=== PATIENT | male | born 1930 | race Caucasian/White ===

== ENCOUNTER 2020-01-29 16:52 | Emergency (ER) | payer MEDICARE ==
--- NOTE | 2020-01-29 17:33 | EDM.PDOC ---
ED HPI GENERAL MEDICAL PROBLEM - General Chief Complaint: Genitourinary Problem Stated Complaint: CATHETER Time Seen by Provider: 01/29/20 17:28 Source of Information: Reports: Patient History Limitations: Reports: No Limitations - History of Present Illness INITIAL COMMENTS - FREE TEXT/NARRATIVE: 89-year-old gentleman presents to the emergency room stating that he has blocked up and his difficulty urinating. Duration: Hour(s): Location: Reports: Pelvis Quality: Reports: Pressure Severity: Mild Improves with: Reports: None Worsens with: Reports: None Associated Symptoms: Reports: No Other Symptoms lower abdomen Pain Score (Numeric/FACES): 3 - Related Data Allergies Allergy/AdvReac Type Severity Reaction Status Date / Time No Known Allergies Allergy Verified 01/29/20 17:18 Past Medical History HEENT History: Reports: Impaired Vision Cardiovascular History: Reports: None Respiratory History: Reports: None Gastrointestinal History: Reports: None Genitourinary History: Reports: BPH, Other (See Below) Other Genitourinary History: catheter at home. Musculoskeletal History: Reports: None Neurological History: Reports: None Psychiatric History: Reports: None Endocrine/Metabolic History: Reports: None Hematologic History: Reports: None Immunologic History: Reports: None Oncologic (Cancer) History: Reports: None Dermatologic History: Reports: None - Infectious Disease History Infectious Disease History: Reports: None - Past Surgical History Head Surgeries/Procedures: Reports: None HEENT Surgical History: Reports: None Cardiovascular Surgical History: Reports: None Respiratory Surgical History: Reports: None GI Surgical History: Reports: None Male Surgical History: Reports: None Endocrine Surgical History: Reports: None Neurological Surgical History: Reports: None Musculoskeletal Surgical History: Reports: None Oncologic Surgical History: Reports: None Dermatological Surgical History: Reports: None Social & Family History - Family History Family Medical History: Noncontributory - Tobacco Use Smoking Status *Q: Never Smoker Second Hand Smoke Exposure: No - Caffeine Use Caffeine Use: Reports: Coffee - Recreational Drug Use Recreational Drug Use: No ED ROS GENERAL - Review of Systems Review Of Systems: See Below Constitutional: Reports: No Symptoms HEENT: Reports: No Symptoms Respiratory: Reports: No Symptoms Cardiovascular: Reports: No Symptoms Endocrine: Reports: No Symptoms GI/Abdominal: Reports: No Symptoms : Reports: Urgency, Urinary Retention Musculoskeletal: Reports: No Symptoms Skin: Reports: No Symptoms Neurological: Reports: No Symptoms Psychiatric: Reports: No Symptoms Hematologic/Lymphatic: Reports: No Symptoms Immunologic: Reports: No Symptoms ED EXAM, RENAL/ - Physical Exam Exam: See Below Exam Limited By: No Limitations General Appearance: Alert, WD/WN, No Apparent Distress Ears: Normal External Exam Nose: Normal Inspection, Normal Mucosa Throat/Mouth: Normal Inspection, Normal Lips Head: Atraumatic, Normocephalic Neck: Normal Inspection, Supple Respiratory/Chest: No Respiratory Distress, Lungs Clear, Normal Breath Sounds, No Accessory Muscle Use Cardiovascular: Normal Peripheral Pulses GI/Abdominal: Normal Bowel Sounds, Soft, Non-Tender (Male) Exam: No Hernia, Normal Inspection, Other (Catheter draining very well being after flushed clean) Back Exam: Normal Inspection, Full Range of Motion Course - Vital Signs Last Recorded V/S: Last Vital Signs Temp 96.8 F L 01/29/20 17:19 Pulse 137 H 01/29/20 17:19 Resp 18 01/29/20 17:19 BP 163/97 H 01/29/20 17:19 Pulse Ox 96 01/29/20 17:19 - Orders/Labs/Meds Orders: Active Orders 24 hr Category Date Time Status Bladder Scan [RC] ASDIRECTED Care 01/29/20 17:43 Active CBC WITH AUTO DIFF [HEME] Stat Lab 01/29/20 18:51 Ordered COMPREHENSIVE METABOLIC PN,CMP [CHEM] Stat Lab 01/29/20 18:51 Ordered Departure - Departure Time of Disposition: 19:35 Disposition: Home, Self-Care 01 Condition: Good Clinical Impression: Retention of urine - Discharge Information Instructions: Acute Urinary Retention, Male, [id number] Referrals: Vincent Winter MD [Primary Care Provider] - Forms: ED Department Discharge Additional Instructions: #1. Follow-up with your primary care physician II. Return for fever chills or any new signs of obstruction. Sepsis Event Note - Evaluation Sepsis Screening Result: No Definite Risk - Focused Exam Vital Signs: Vital Signs Temp Pulse Resp BP Pulse Ox 01/29/20 17:19 96.8 F L 137 H 18 163/97 H 96 Date Exam was Performed: 01/29/20 Time Exam was Performed: 19:33 - My Orders Last 24 Hours: My Active Orders 01/29/20 18:51 CBC WITH AUTO DIFF [HEME] Stat COMPREHENSIVE METABOLIC PN,CMP [CHEM] Stat - Assessment/Plan Last 24 Hours: My Active Orders 01/29/20 18:51 CBC WITH AUTO DIFF [HEME] Stat COMPREHENSIVE METABOLIC PN,CMP [CHEM] Stat
== END 2020-01-29 20:02 | disposition home or self-care (01) ==
LOC: MW.ED 16:52
DX: N40.1 Benign prostatic hyperplasia with lower urinary tract symptoms (principal); R33.8 Other retention of urine
CPT/HCPCS: 51798; 99282; 99283

== ENCOUNTER 2020-02-29 08:39 | Emergency (ER) | payer MEDICARE ==
--- NOTE | 2020-02-29 09:08 | EDM.PDOC ---
ED HPI GENERAL MEDICAL PROBLEM - General Chief Complaint: Genitourinary Problem Stated Complaint: CATHETER COMPLAINT Time Seen by Provider: 02/29/20 08:56 Source of Information: Reports: Patient History Limitations: Reports: No Limitations - History of Present Illness INITIAL COMMENTS - FREE TEXT/NARRATIVE: 89 yo M with indwelling justice catheter presents with clogged indwelling catheter for 1 to 2 days. He has noted no urine output into the bag and associated with suprapubic pain. Denies fever, chills, flank pain. ROS: A 10-point review of systems, other than pertinent positives and negatives as stated per HPI, is otherwise negative PHYSICAL EXAM General: AOx4, GCS = 15, No distress HEENT: dry mucous membrane Neck: supple, no meningismus, no Kernig or Brudzinski Cardiac: S1S2 RRR Respiratory: CTAB, no crackles or rales, no wheezing Abdomen: Soft, nontender, no rebound or guarding, nondistended, no pulsatile mass. : Justice catheter in place. Back: nontender Musculoskeletal: NVI distally, no deformity Neuro: No focal deficits MEDICAL DECISION MAKING: I reviewed the patients past medical records, lab and radiographic findings. I discussed the case with family members. My differential diagnosis included: Justice obstruction, spasm. Justice was changed with good urine output. Pelvic Pain Score (Numeric/FACES): 7 - Related Data Allergies Allergy/AdvReac Type Severity Reaction Status Date / Time No Known Allergies Allergy Verified 02/29/20 09:02 Home Meds: Home Meds cephALEXin [Keflex] 500 mg PO Q8H #21 cap 02/29/20 [Rx] Past Medical History HEENT History: Reports: Impaired Vision Cardiovascular History: Reports: None Respiratory History: Reports: None Gastrointestinal History: Reports: None Genitourinary History: Reports: BPH, Other (See Below) Other Genitourinary History: catheter at home. Musculoskeletal History: Reports: None Neurological History: Reports: None Psychiatric History: Reports: None Endocrine/Metabolic History: Reports: None Hematologic History: Reports: None Immunologic History: Reports: None Oncologic (Cancer) History: Reports: None Dermatologic History: Reports: None - Infectious Disease History Infectious Disease History: Reports: None - Past Surgical History Head Surgeries/Procedures: Reports: None HEENT Surgical History: Reports: None Cardiovascular Surgical History: Reports: None Respiratory Surgical History: Reports: None GI Surgical History: Reports: None Male Surgical History: Reports: None Endocrine Surgical History: Reports: None Neurological Surgical History: Reports: None Musculoskeletal Surgical History: Reports: None Oncologic Surgical History: Reports: None Dermatological Surgical History: Reports: None Social & Family History - Family History Family Medical History: Noncontributory - Caffeine Use Caffeine Use: Reports: Coffee ED ROS GENERAL - Review of Systems Review Of Systems: See Below (see dictation) ED EXAM, RENAL/ - Physical Exam Exam: See Below (see dictation) Course - Vital Signs Last Recorded V/S: Last Vital Signs Temp 97.9 F 02/29/20 09:02 Pulse 84 02/29/20 10:21 Resp 16 02/29/20 10:21 BP 144/77 H 02/29/20 10:21 Pulse Ox 95 02/29/20 10:21 - Orders/Labs/Meds Orders: Active Orders 24 hr Category Date Time Status CULTURE URINE [RM] Stat Lab 02/29/20 09:15 Received Labs: Laboratory Tests 02/29/20 Range/Units 09:15 Urine Color YELLOW Urine Appearance CLOUDY Urine pH 7.5 (5.0-8.0) Ur Specific [place] 1.020 (1.001-1.035) Urine Protein TRACE H (NEGATIVE) mg/dL Urine Glucose (UA) NEGATIVE (NEGATIVE) mg/dL Urine Ketones NEGATIVE (NEGATIVE) mg/dL Urine Occult Blood MODERATE H (NEGATIVE) Urine Nitrite POSITIVE H (NEGATIVE) Urine Bilirubin NEGATIVE (NEGATIVE) Urine Urobilinogen 0.2 (<2.0) EU/dL Ur Leukocyte Esterase LARGE H (NEGATIVE) Urine RBC 5-8 (0-2/HPF) Urine WBC 40-50 (0-5/HPF) Ur Epithelial Cells FEW (NONE-FEW) Urine Bacteria 3+ H (NEGATIVE) - Re-Assessments/Exams Free Text/Narrative Re-Assessment/Exam: 02/29/20 10:22 After Justice change, his symptoms improved and he is stable for discharge. I performed a repeat examination and the patient has not demonstrated any new abnormal findings. Patient exhibits normal vital signs and has exhibited a normal gait. I advised the patient to return to the ER for reevaluation if symptoms worsened, and to follow up with their PCP within 2-3 days. Departure - Departure Time of Disposition: 10:22 Disposition: Home, Self-Care 01 Condition: Good Clinical Impression: UTI, Urinary tract infectious disease, Retention of urine, Justice catheter problem - Discharge Information *PRESCRIPTION DRUG MONITORING PROGRAM REVIEWED*: Not Applicable *COPY OF PRESCRIPTION DRUG MONITORING REPORT IN PATIENT MIRY[place]: Not Applicable Prescriptions: cephALEXin [Keflex] 500 mg PO Q8H #21 cap Instructions: Indwelling Urinary Catheter Care, Adult, Urinary Tract Infection , Adult, Indwelling Urinary Catheter Insertion, Care After Referrals: Vincent Winter MD [Primary Care Provider] - Forms: ED Department Discharge Additional Instructions: The following information is given to patients seen in the emergency department who are being discharged to home. This information is to outline your options for follow-up care. We provide all patients seen in our emergency department with a follow-up referral. The need for follow-up, as well as the timing and circumstances, are variable depending upon the specifics of your emergency department visit. If you don't have a primary care physician on staff, we will provide you with a referral. We always advise you to contact your personal physician following an emergency department visit to inform them of the circumstance of the visit and for follow-up with them and/or the need for any referrals to a consulting specialist. The emergency department will also refer you to a specialist when appropriate. This referral assures that you have the opportunity for follow-up care with a specialist. All of these measure are taken in an effort to provide you with optimal care, which includes your follow-up. Under all circumstances we always encourage you to contact your private physician who remains a resource for coordinating your care. When calling for follow-up care, please make the office aware that this follow-up is from your recent emergency room visit. If for any reason you are refused follow-up, please contact the [facility] Department at and asked to speak to the emergency department charge nurse. Sepsis Event Note - Focused Exam Vital Signs: Vital Signs Temp Pulse Resp BP Pulse Ox 02/29/20 10:21 84 16 144/77 H 95 02/29/20 09:02 97.9 F 104 H 18 191/96 H 98 Date Exam was Performed: 02/29/20 Time Exam was Performed: 10:22 - My Orders Last 24 Hours: My Active Orders 02/29/20 09:15 CULTURE URINE [RM] Stat - Assessment/Plan Last 24 Hours: My Active Orders 02/29/20 09:15 CULTURE URINE [RM] Stat
== END 2020-02-29 10:30 | disposition home or self-care (01) ==
LOC: MW.ED 08:39
DX: T83.511A Infection and inflammatory reaction due to indwelling urethral catheter, initial encounter (principal); N39.0 Urinary tract infection, site not specified; N40.1 Benign prostatic hyperplasia with lower urinary tract symptoms; R33.8 Other retention of urine
CPT/HCPCS: 51702; 81001; 87086; 87186; 99283

== ENCOUNTER 2020-05-15 12:47 | Emergency (ER) | payer MEDICARE ==
[2020-05-15 13:37] LABS: CARBON DIOXIDE,CO2 23.3 mmol/L (21.0-32.0); POTASSIUM,K 4.2 mmol/L (3.5-5.1)
[2020-05-15] MEDS ORDERED: Lactated Ringers 1,000 ML IV ONE (13:41)
[2020-05-15] MEDS ORDERED: Iopamidol 755 MG/ML 200 ML Multipack Bottle IVPUSH ONE (14:37)
--- NOTE | 2020-05-15 15:03 | CT ---
CT abdomen and pelvis Technique: Multiple axial sections were obtained from above the dome of the diaphragm inferiorly through the pubic symphysis. Intravenous contrast was utilized. No oral contrast has been given. Comparison: Prior CT abdomen and pelvis exam of 12/05/19. Visualized lung bases show slight scarring with nothing acute being seen. Liver contains no focal parenchymal abnormality. Small hiatal hernia is noted. Spleen appears normal. Gallstone is noted within the gallbladder which is stable from prior exam. Multiple cysts within the right kidney are seen which are stable from prior exam. Left kidney shows no cysts. No hydronephrosis is seen. No ureteral dilatation is seen. Atherosclerotic calcification is seen within the aorta and iliac vessels. Slight wall thickening is seen within portions of the stomach antrum and duodenum suggesting mild antritis and duodenitis. Pancreas appears within normal limits. Aorta shows atherosclerotic change which continues into the iliac vessels. No aneurysm is seen. No retroperitoneal adenopathy or mesenteric abnormalities are seen. Appendix is seen which is normal in size. Markedly enlarged prostate gland is seen. Lee catheter is noted with balloon located within the bladder. Bone window setting shows mild degenerative change and osteopenia. No acute abnormality is appreciated. Impression: 1. Bowel wall thickening within the stomach antrum and duodenum suspicious for antritis and duodenitis. 2. Other findings which are stable from prior CT exam. No other acute abnormality is appreciated. Diagnostic code #3 This report was dictated in MDT
--- NOTE | 2020-05-15 15:17 | EDM.PDOC ---
ED HPI GENERAL MEDICAL PROBLEM - General Chief Complaint: General Stated Complaint: DEHYDRATION Time Seen by Provider: 05/15/20 12:55 Source of Information: Reports: Patient, Family History Limitations: Reports: No Limitations - History of Present Illness INITIAL COMMENTS - FREE TEXT/NARRATIVE: 89-year-old male with a past medical history of BPH requiring Lee catheter placement presenting with diarrhea, vomiting, and poor feeding. Patient and report a one-week history of nonbloody diarrhea, which lasted for 5 to 6 days and stopped yesterday. They also report several days of nonbloody emesis and nausea. states that the patient has not been eating very much over the past week and is concerned that he may be dehydrated. The states that the patient was complaining of some upper epigastric and lower chest pain over the past few days. At present, the patient has no complaints. He denies any pain, nausea, GI bleeding, chest discomfort, abdominal pain, or any other complaints. Denies any recent sick contacts. Denies flank pain, back pain, neck pain, dysuria, hematuria, or bloody stools. Patient was recently treated with a course of Bactrim DS but I am not entirely certain what this was for. He was seen by his primary medical doctor yesterday for diarrhea but was unable to provide a stool sample for testing, and has not had any diarrhea since then. He has not been taking any antiemetic or antidiarrheal medications. ROS: A 10-point review of systems was negative, except as noted in the HPI (or in the ROS section of this note). Past medical history: Reviewed, no additional pertinent history. Surgical history: Reviewed in system, no additional pertinent history. Social history: Reviewed in system, no additional pertinent history. Family history: Reviewed in system, no additional pertinent history. PHYSICAL EXAM Vital signs reviewed. Nursing notes reviewed. Constitutional: Awake, alert, non-distressed. Head: Normocephalic, atraumatic. Eyes: EOMI, conjunctiva normal, no discharge, no scleral icterus. Ears, Nose, Throat: External ears and nose normal, moist oral mucosa. Cardiovascular: 2+ radial pulse, capillary refill less than 2 seconds. Pulmonary: normal work of breathing, no accessory muscle use. Abdomen/GI: Soft, nontender, nondistended, no guarding or rigidity, no masses. Musculoskeletal: No deformities. Integumentary: Appropriate color for ethnicity, warm, dry, no pallor or jaundice, no rash. Neurologic: Alert, answering questions appropriately, normal speech, no facial droop, moving all extremities well. Psychiatric: Appropriate mood and affect, normal thought process. - Related Data Allergies Allergy/AdvReac Type Severity Reaction Status Date / Time No Known Allergies Allergy Verified 05/15/20 13:02 Home Meds: Home Meds cephALEXin [Keflex] 500 mg PO Q8H #21 cap 02/29/20 [Rx] Ondansetron [Zofran] 4 mg PO Q8H PRN #15 tab 05/15/20 [Rx] Past Medical History HEENT History: Reports: Impaired Vision Cardiovascular History: Reports: None Respiratory History: Reports: None Gastrointestinal History: Reports: None Genitourinary History: Reports: BPH, Other (See Below) Other Genitourinary History: catheter at home. Musculoskeletal History: Reports: None Neurological History: Reports: None Psychiatric History: Reports: None Endocrine/Metabolic History: Reports: None Hematologic History: Reports: None Immunologic History: Reports: None Oncologic (Cancer) History: Reports: None Dermatologic History: Reports: None - Infectious Disease History Infectious Disease History: Reports: None - Past Surgical History Head Surgeries/Procedures: Reports: None HEENT Surgical History: Reports: None Cardiovascular Surgical History: Reports: None Respiratory Surgical History: Reports: None GI Surgical History: Reports: None Male Surgical History: Reports: None Endocrine Surgical History: Reports: None Neurological Surgical History: Reports: None Musculoskeletal Surgical History: Reports: None Oncologic Surgical History: Reports: None Dermatological Surgical History: Reports: None Social & Family History - Family History Family Medical History: Noncontributory - Tobacco Use Smoking Status *Q: Never Smoker - Caffeine Use Caffeine Use: Reports: Coffee - Recreational Drug Use Recreational Drug Use: No ED ROS GENERAL - Review of Systems Review Of Systems: See Below ED EXAM, GENERAL - Physical Exam Exam: See Below Course - Vital Signs Text/Narrative:: Differential diagnosis includes but is not limited to: Gastritis, gastroenteritis, bowel obstruction, hernia, AAA, intra-abdominal infection, ileus, cholecystitis, acute hepatitis, acute coronary syndrome, fine depletion, electrolyte disturbance, renal failure, etc. Labs show mild leukocytosis. Lactate within normal limits. Mild hyponatremia to 130. Mild acute renal insufficiency with creatinine of 1.5. Glucose 146 with normal carbon dioxide. Negative troponin. Negative lipase. We obtained a CT scan of the abdomen/pelvis with contrast which demonstrated bowel wall thickening within the stomach antrum and the duodenum suspicious for antritis and duodenitis, but otherwise no acute findings. Twelve-lead EKG looks nonischemic. Given 1 L of lactated Ringer's. Patient has no complaints and is asymptomatic at this point. He was given IV fluids. I think we can plan to discharge home and have him follow-up with his primary doctor. He can have his sodium and creatinine rechecked in the next couple of days. I will prescribe some Zofran for any nausea or vomiting. His diarrhea has subsided since yesterday and has not come back. I counseled the patient and his that they can give acetaminophen, Maalox max, and Imodium AD as needed. I do not see any indication for re-prescribing antibiotics given the patient recently finished a course of Bactrim DS. His abdomen is soft and nondistended and there is no abdominal pain or tenderness. He looks well and nontoxic. Plan: Patient is stable to discharge home with outpatient primary care follow- up. Strict emergency department return precautions were provided, patient indicated understanding. All questions were answered prior to departure. Discharged in good condition. Last Recorded V/S: Last Vital Signs Temp 36.3 C 05/15/20 13:02 Pulse 76 05/15/20 13:30 Resp 19 05/15/20 13:30 BP 151/79 H 05/15/20 13:30 Pulse Ox 95 05/15/20 13:30 - Orders/Labs/Meds Orders: Active Orders 24 hr Category Date Time Status EKG 12 Lead [EKG Documentation Completion] [RC] STAT Care 05/15/20 16:17 Active Labs: Laboratory Tests 05/15/20 05/15/20 05/15/20 Range/Units 13:04 13:04 13:04 WBC 15.07 H (4.0-11.0) K/uL RBC 5.36 (4.50-5.90) M/uL Hgb 16.2 (13.0-17.0) g/dL Hct 46.9 (38.0-50.0) % MCV 87.5 (80.0-98.0) fL MCH 30.2 (27.0-32.0) pg MCHC 34.5 (31.0-37.0) g/dL RDW Std Deviation 42.4 (28.0-62.0) fl RDW Coeff of Michael 13 (11.0-15.0) % Plt Count 259 (150-400) K/uL MPV 8.80 (7.40-12.00) fL Neut % (Auto) 77.8 (48.0-80.0) % Lymph % (Auto) 11.0 L (16.0-40.0) % Davie % (Auto) 10.9 (0.0-15.0) % Eos % (Auto) 0.2 (0.0-7.0) % Baso % (Auto) 0.1 (0.0-1.5) % Neut # (Auto) 11.7 H (1.4-5.7) K/uL Lymph # (Auto) 1.7 (0.6-2.4) K/uL Davie # (Auto) 1.7 H (0.0-0.8) K/uL Eos # (Auto) 0.0 (0.0-0.7) K/uL Baso # (Auto) 0.0 (0.0-0.1) K/uL Nucleated RBC % 0.0 /100WBC Nucleated RBCs # 0 K/uL Lactate 1.7 (0.20-2.00) mmol/L Sodium 130 L (136-148) mmol/L Potassium 4.2 (3.5-5.1) mmol/L Chloride 96 L (98-107) mmol/L Carbon Dioxide 23.3 (21.0-32.0) mmol/L BUN 34 H (7.0-18.0) mg/dL Creatinine 1.5 H (0.8-1.3) mg/dL Est Cr Clr Drug Dosing 34.70 mL/min Estimated GFR (MDRD) 44.3 ml/min Glucose 146 H (74-106) mg/dL Calcium 8.7 (8.5-10.1) mg/dL Total Bilirubin 0.7 (0.2-1.0) mg/dL AST 29 (15-37) IU/L ALT 33 (14-63) IU/L Alkaline Phosphatase 66 (46-116) U/L Troponin I (0.000-0.056) ng/mL Total Protein 8.0 (6.4-8.2) g/dL Albumin 3.6 (3.4-5.0) g/dL Globulin 4.4 H (2.6-4.0) g/dL Albumin/Globulin Ratio 0.8 L (0.9-1.6) Lipase (73-393) U/L 05/15/20 05/15/20 Range/Units 13:04 13:04 WBC (4.0-11.0) K/uL RBC (4.50-5.90) M/uL Hgb (13.0-17.0) g/dL Hct (38.0-50.0) % MCV (80.0-98.0) fL MCH (27.0-32.0) pg MCHC (31.0-37.0) g/dL RDW Std Deviation (28.0-62.0) fl RDW Coeff of Michael (11.0-15.0) % Plt Count (150-400) K/uL MPV (7.40-12.00) fL Neut % (Auto) (48.0-80.0) % Lymph % (Auto) (16.0-40.0) % Davie % (Auto) (0.0-15.0) % Eos % (Auto) (0.0-7.0) % Baso % (Auto) (0.0-1.5) % Neut # (Auto) (1.4-5.7) K/uL Lymph # (Auto) (0.6-2.4) K/uL Davie # (Auto) (0.0-0.8) K/uL Eos # (Auto) (0.0-0.7) K/uL Baso # (Auto) (0.0-0.1) K/uL Nucleated RBC % /100WBC Nucleated RBCs # K/uL Lactate (0.20-2.00) mmol/L Sodium (136-148) mmol/L Potassium (3.5-5.1) mmol/L Chloride (98-107) mmol/L Carbon Dioxide (21.0-32.0) mmol/L BUN (7.0-18.0) mg/dL Creatinine (0.8-1.3) mg/dL Est Cr Clr Drug Dosing mL/min Estimated GFR (MDRD) ml/min Glucose (74-106) mg/dL Calcium (8.5-10.1) mg/dL Total Bilirubin (0.2-1.0) mg/dL AST (15-37) IU/L ALT (14-63) IU/L Alkaline Phosphatase (46-116) U/L Troponin I < 0.050 (0.000-0.056) ng/mL Total Protein (6.4-8.2) g/dL Albumin (3.4-5.0) g/dL Globulin (2.6-4.0) g/dL Albumin/Globulin Ratio (0.9-1.6) Lipase 278 (73-393) U/L Meds: Medications Discontinued Medications Generic Name Dose Route Start Last Admin Trade Name Freq PRN Reason Stop Dose Admin Lactated Ringer's 1,000 mls @ 999 mls/hr 05/15/20 13:41 05/15/20 14:20 Ringers, Lactated IV 05/15/20 14:41 999 mls/hr .BOLUS ONE Administration Iopamidol 100 ml 05/15/20 14:37 05/15/20 14:37 Isovue Multipack-370 (76%) IVPUSH 05/15/20 14:38 100 ml ONETIME ONE Administration Departure - Departure Time of Disposition: 15:16 Disposition: Home, Self-Care 01 Condition: Good Clinical Impression: Gastritis and duodenitis, Hyponatremia, Acute diarrhea, Acute renal insufficiency Nausea & vomiting Qualifiers: Vomiting type: unspecified Vomiting Intractability: non-intractable Qualified Code(s): R11.2 - Nausea with vomiting, unspecified - Discharge Information *PRESCRIPTION DRUG MONITORING PROGRAM REVIEWED*: Not Applicable *COPY OF PRESCRIPTION DRUG MONITORING REPORT IN PATIENT MIRYAM: Not Applicable Instructions: Gastritis, Adult, Duodenitis, Nausea and Vomiting, Adult, [id number] Referrals: Vincent Winter MD [Primary Care Provider] - 3 Days (For follow-up of symptoms.) Forms: ED Department Discharge Additional Instructions: Thank you for choosing the [facility] emergency department in [place] for your medical needs today. It was a pleasure caring for you. You were seen in the emergency department for vomiting, diarrhea, and poor appetite. Your blood work showed mild dehydration. Your CT scan was concerning for some inflammation around the stomach and the small intestines. At this point I do not see a convincing sign of infection and you have recently finished oral antibiotics. I will prescribe some medicine for nausea and vomiting, I recommend [id number] Imodium for diarrhea if this comes back. I also recommend [id number] Maalox max for any abdominal pain. You are mildly dehydrated and we gave you some IV fluids. Your sodium level is slightly low and your renal function was slightly impaired, I would like for you to follow-up with your primary doctor to have this rechecked in the next week or so. I would like for you to follow-up with your doctor in the next couple of days to be reevaluated. Please return the emergency department immediately if your symptoms worsen or if you feel worse. The following information is given to patients seen in the emergency department who are being discharged. This information is to outline your options for follow-up care. We provide all patients seen in our emergency department with a follow-up referral. The need for follow-up, as well as the timing and circumstances, are variable depending upon the specifics of your emergency department visit. If you don't have a primary care physician on staff, we will provide you with a referral. We always advise you to contact your personal physician following an emergency department visit to inform them of the circumstance of the visit and for follow-up with them and/or the need for any referrals to a consulting specialist. The emergency department will also refer you to a specialist when appropriate. This referral assures that you have the opportunity for follow-up care with a specialist. All of these measure are taken in an effort to provide you with optimal care, which includes your follow-up. Under all circumstances we always encourage you to contact your private physician who remains a resource for coordinating your care. When calling for follow-up care, please make the office aware that this follow-up is from your recent emergency room visit. If for any reason you are refused follow-up, please contact the [facility] Emergency Department at and asked to speak to the emergency department charge nurse. If you do not have a primary care physician that is caring for you, you can contact these clinics below to set up an appointment to establish care: [facility] - Primary Care [address] [place] [id number] [facility] [address] [place] [id number] Sepsis Event Note (ED) - Evaluation Sepsis Screening Result: No Definite Risk - Focused Exam Vital Signs: Vital Signs Temp Pulse Resp BP Pulse Ox 05/15/20 13:30 76 19 151/79 H 95 05/15/20 13:02 36.3 C 83 16 164/72 H 97 - My Orders Last 24 Hours: My Active Orders 05/15/20 16:17 EKG 12 Lead [EKG Documentation Completion] [RC] STAT - Assessment/Plan Last 24 Hours: My Active Orders 05/15/20 16:17 EKG 12 Lead [EKG Documentation Completion] [RC] STAT
== END 2020-05-15 17:22 | disposition home or self-care (01) ==
LOC: MW.ED 12:47
DX: K29.70 Gastritis, unspecified, without bleeding (principal); K29.80 Duodenitis without bleeding; E87.1 Hypo-osmolality and hyponatremia; R19.7 Diarrhea, unspecified; N28.9 Disorder of kidney and ureter, unspecified
CPT/HCPCS: 36415; 74177; 80053; 83605; 83690; 84484; 85025; 93005; 96360; 96361; 99284; J7120; Q9967; 93010

== ENCOUNTER 2022-05-21 19:37 | Emergency (ER) | payer MEDICARE ==
[2022-05-21] MEDS ORDERED: Lactated Ringers 1,000 ML IV ONE (19:59)
[2022-05-21] MEDS ORDERED: Acetaminophen 500 MG Tab PO ONE (20:00)
[2022-05-21] MEDS ORDERED: Ondansetron 4 MG/2 ML SDV IVPUSH ONE (20:00)
[2022-05-21] MEDS ORDERED: Cefepime 2 GM in Premix Bag 1 BAG IV ONE (20:31)
[2022-05-21 20:44] LABS: CARBON DIOXIDE,CO2 17.3 mmol/L (21.0-32.0); POTASSIUM,K 4.4 mmol/L (3.5-5.1)
[2022-05-21] MEDS ORDERED: VANCOmycin 1.5 GM/300 ML 1.5 GM in Premix Bag 1 BAG IV ONE (20:45)
[2022-05-21] MEDS ORDERED: Lactated Ringers 1,000 ML IV STA (20:52)
[2022-05-21 20:59] LABS: CORONAVIRUS COVID-19 NAA NEGATIVE (NEGATIVE); INFLUENZA A NAA NEGATIVE (NEGATIVE); INFLUENZA B NAA NEGATIVE (NEGATIVE)
[2022-05-21] MEDS ORDERED: Iopamidol 755 MG/ML 500 ML Multipack Bottle IVPUSH ONE (22:10)
[2022-05-22] MEDS ORDERED: Lactated Ringers 1,000 ML IV STA (01:44)
[2022-05-22] MEDS ORDERED: Cefepime 2 GM in Premix Bag 1 BAG IV STA (05:10)
[2022-05-22] MEDS ORDERED: metroNIDAZOLE/Normal Saline 500 MG in Premix Bag 1 BAG IV ONE (05:10)
[2022-05-22 05:27] LABS: CARBON DIOXIDE,CO2 22.5 mmol/L (21.0-32.0); POTASSIUM,K 3.9 mmol/L (3.5-5.1)
[2022-05-22] MEDS ORDERED: Morphine 4 MG/ML VIAL IVPUSH ONE (06:10)
== END 2022-05-22 07:40 ==
LOC: MW.ED 19:37
DX: A41.9 Sepsis, unspecified organism (principal); R65.20 Severe sepsis without septic shock; K85.10 Biliary acute pancreatitis without necrosis or infection; N39.0 Urinary tract infection, site not specified; E87.2 Acidosis; Z20.822 Contact with and (suspected) exposure to COVID-19
CPT/HCPCS: 0240U; 36415; 71045; 74177; 80053; 81001; 83605; 83690; 85025; 85610; 87040; 87086; 87088; 87186; 93005; 96361; 96365; 96366; 96367; 96375; 99291; 99292; A9270; J0692; J2270; J2405; J3370; J3490; J7120; Q9967; 93010

== ENCOUNTER 2022-08-26 18:33 | Inpatient (IN) | payer MEDICARE, OTHER ==
[2022-08-26] MEDS ORDERED: Lidocaine 1% PF 2 ML SDV INJECT ONE (18:43)
[2022-08-26 19:11] LABS: CARBON DIOXIDE,CO2 21.2 mmol/L (21.0-32.0); POTASSIUM,K 3.7 mmol/L (3.5-5.1)
[2022-08-26] MEDS ORDERED: Morphine 4 MG/ML Syringe IVPUSH STA (19:18)
[2022-08-26] MEDS ORDERED: Lactated Ringers 1,000 ML IV STA (21:29)
[2022-08-26] MEDS ORDERED: Albuterol/Ipratropium 3.0-0.5 MG/3 ML Neb Soln NEB PRN (23:45)
[2022-08-26] MEDS ORDERED: Ondansetron 4 MG/2 ML SDV IVPUSH PRN (23:45)
[2022-08-27] MEDS: Lactated Ringers 1,000 ML IV SCH ×2 (00:30→21:36)
[2022-08-27] MEDS: Pantoprazole 40 MG in Sodium Chloride 0.9% 10 ML IVPUSH SCH ×2 (00:30→22:56)
[2022-08-27] MEDS: Heparin Sodium 5,000 Units/ML Vial SUBCUT SCH ×2 (00:31→08:26)
[2022-08-27] MEDS: Morphine 2 MG/ML SYRINGE IVPUSH PRN ×3 (00:31→20:20)
[2022-08-27 06:25] LABS: CARBON DIOXIDE,CO2 21.8 mmol/L (21.0-32.0); POTASSIUM,K 4.1 mmol/L (3.5-5.1)
[2022-08-27] MEDS ORDERED: Bupivacaine 0.5% 10 ML SDV ONE (10:39)
[2022-08-27] MEDS ORDERED: Dexmedetomidine 200 MCG/2 ML SDV ONE (10:43)
[2022-08-27] MEDS ORDERED: Water For Injection, Sterile 20 ML ONE (10:43)
[2022-08-27] MEDS ORDERED: propofoL 100 ML ONE (10:43)
[2022-08-27] MEDS ORDERED: fentaNYL 100 MCG/2 ML SDV ONE (11:31)
[2022-08-27] MEDS: Enoxaparin 30 MG/0.3 ML Syringe SUBCUT SCH (11:40)
[2022-08-27] MEDS ORDERED: Ondansetron 4 MG/2 ML SDV ONE (12:10)
[2022-08-27] MEDS ORDERED: ceFAZolin 2 GM Vial ONE (12:46)
[2022-08-27] MEDS ORDERED: Tranexamic Acid 1,000 MG/10 ML Vial ONE (12:50)
[2022-08-27] MEDS ORDERED: Phenylephrine 1% 10 MG/ML SDV ONE (12:58)
[2022-08-27] MEDS ORDERED: Vasopressin 20 Units/1 ML MDV ONE (13:03)
[2022-08-27] MEDS ORDERED: ePHEDrine 50 MG/ML SDV ONE (13:20)
[2022-08-27] MEDS ORDERED: Albuterol 0.083% 2.5 MG/3 ML Neb Soln NEB PRN (14:08)
[2022-08-27] MEDS ORDERED: Naloxone 0.4 MG/ML SDV IVPUSH PRN (14:08)
[2022-08-27] MEDS ORDERED: Ondansetron 4 MG/2 ML SDV IVPUSH PRN (14:08)
[2022-08-27] MEDS ORDERED: HYDROmorphone 1 MG/ML Syringe IVPUSH PRN (14:08)
[2022-08-27] MEDS ORDERED: Morphine 2 MG/ML SYRINGE IVPUSH PRN (14:08)
[2022-08-27] MEDS ORDERED: Metoclopramide 10 MG/2 ML SDV IVPUSH PRN (14:08)
[2022-08-27] MEDS ORDERED: fentaNYL 50 MCG/ML SDV IVPUSH PRN (14:08)
[2022-08-27] MEDS: ceFAZolin 2 GM in Sodium Chloride 0.9% 50 ML IV SCH (20:28)
[2022-08-27] MEDS: Acetaminophen/HYDROcodone 325-5 MG Tab PO PRN (22:51)
[2022-08-28] MEDS: Lactated Ringers 1,000 ML IV SCH ×3 (01:24→18:08)
[2022-08-28] MEDS: ceFAZolin 2 GM in Sodium Chloride 0.9% 50 ML IV SCH (03:32)
[2022-08-28] MEDS: Acetaminophen/HYDROcodone 325-5 MG Tab PO PRN ×4 (05:30→20:32)
[2022-08-28 06:21] LABS: CARBON DIOXIDE,CO2 26.6 mmol/L (21.0-32.0); POTASSIUM,K 4.2 mmol/L (3.5-5.1)
[2022-08-28] MEDS: Docusate Sodium 100 MG Cap PO SCH ×2 (09:56→20:32)
[2022-08-28] MEDS: amLODIPine 5 MG Tab PO SCH (09:56)
[2022-08-28] MEDS: Enoxaparin 30 MG/0.3 ML Syringe SUBCUT SCH (11:57)
[2022-08-28] MEDS: Morphine 2 MG/ML SYRINGE IVPUSH PRN ×2 (12:01→15:17)
[2022-08-28] MEDS: Pantoprazole 40 MG in Sodium Chloride 0.9% 10 ML IVPUSH SCH (23:35)
[2022-08-29] MEDS: Lactated Ringers 1,000 ML IV SCH (02:27)
[2022-08-29] MEDS: Morphine 2 MG/ML SYRINGE IVPUSH PRN ×2 (02:28→13:10)
[2022-08-29 06:51] LABS: CARBON DIOXIDE,CO2 27.1 mmol/L (21.0-32.0); POTASSIUM,K 3.7 mmol/L (3.5-5.1)
[2022-08-29] MEDS ORDERED: Sodium Chloride 0.9% 10 ML Syringe FLUSH PRN (08:04)
[2022-08-29] MEDS ORDERED: Sodium Chloride 0.9% 2.5 ML Syringe FLUSH PRN (08:04)
[2022-08-29] MEDS: Docusate Sodium 100 MG Cap PO SCH ×2 (09:02→20:10)
[2022-08-29] MEDS: amLODIPine 5 MG Tab PO SCH (09:03)
[2022-08-29] MEDS: Acetaminophen/HYDROcodone 325-5 MG Tab PO PRN ×2 (09:04→20:10)
[2022-08-29] MEDS ORDERED: Acetaminophen 325 MG Tab PO PRN (10:54)
[2022-08-29] MEDS: cefTRIAXone 1 GM in Sodium Chloride 0.9% 50 ML IV SCH (11:59)
[2022-08-29] MEDS: Enoxaparin 30 MG/0.3 ML Syringe SUBCUT SCH (12:10)
[2022-08-29] MEDS ORDERED: Lactated Ringers 500 ML IV ONE (14:00)
[2022-08-29] MEDS: Pantoprazole 40 MG Tab.CR PO SCH (20:10)
[2022-08-30 07:25] LABS: CARBON DIOXIDE,CO2 23.6 mmol/L (21.0-32.0); POTASSIUM,K 3.6 mmol/L (3.5-5.1)
[2022-08-30] MEDS: amLODIPine 5 MG Tab PO SCH (09:52)
[2022-08-30] MEDS: Docusate Sodium 100 MG Cap PO SCH ×2 (09:52→20:04)
[2022-08-30] MEDS: Acetaminophen/HYDROcodone 325-5 MG Tab PO PRN ×3 (10:28→21:26)
[2022-08-30] MEDS: cefTRIAXone 1 GM in Sodium Chloride 0.9% 50 ML IV SCH (10:57)
[2022-08-30] MEDS: Enoxaparin 30 MG/0.3 ML Syringe SUBCUT SCH (10:58)
[2022-08-30] MEDS: Morphine 2 MG/ML SYRINGE IVPUSH PRN ×2 (12:09→19:59)
[2022-08-30] MEDS: Pantoprazole 40 MG Tab.CR PO SCH (20:04)
[2022-08-31] MEDS ORDERED: Acetaminophen 325 MG Tab PO SCH (08:00)
[2022-08-31] MEDS: Polyethylene Glycol 3350 Powder 17 GM Packet PO SCH (10:09)
[2022-08-31] MEDS: Docusate Sodium 100 MG Cap PO SCH ×2 (10:09→20:01)
[2022-08-31] MEDS: amLODIPine 5 MG Tab PO SCH (10:09)
[2022-08-31] MEDS: Acetaminophen 325 MG Tab PO SCH ×3 (10:12→20:01)
[2022-08-31] MEDS: cefTRIAXone 1 GM in Sodium Chloride 0.9% 50 ML IV SCH (10:13)
[2022-08-31] MEDS: Enoxaparin 30 MG/0.3 ML Syringe SUBCUT SCH (10:30)
[2022-08-31 12:44] LABS: CARBON DIOXIDE,CO2 23.7 mmol/L (21.0-32.0); POTASSIUM,K 3.6 mmol/L (3.5-5.1)
[2022-08-31] MEDS: Bisacodyl 10 MG Supp RECTAL PRN (14:29)
[2022-08-31] MEDS: Pantoprazole 40 MG Tab.CR PO SCH (20:01)
[2022-09-01] MEDS: Acetaminophen 325 MG Tab PO SCH ×4 (03:34→20:49)
[2022-09-01 06:59] LABS: POTASSIUM,K 3.7 mmol/L (3.5-5.1)
[2022-09-01] MEDS: Docusate Sodium 100 MG Cap PO SCH ×2 (08:31→20:48)
[2022-09-01] MEDS: amLODIPine 5 MG Tab PO SCH (08:32)
[2022-09-01] MEDS: Polyethylene Glycol 3350 Powder 17 GM Packet PO SCH (08:33)
[2022-09-01] MEDS: Enoxaparin 30 MG/0.3 ML Syringe SUBCUT SCH (10:45)
[2022-09-01] MEDS: cefTRIAXone 1 GM in Sodium Chloride 0.9% 50 ML IV SCH (10:45)
[2022-09-01] MEDS: Levofloxacin/Dextrose 5%-Water 750 MG in Premix Bag 1 BAG IV SCH (15:29)
[2022-09-01] MEDS: Pantoprazole 40 MG Tab.CR PO SCH (20:49)
[2022-09-02] MEDS: Acetaminophen 325 MG Tab PO SCH ×4 (03:56→21:06)
[2022-09-02 07:42] LABS: CARBON DIOXIDE,CO2 23.4 mmol/L (21.0-32.0); POTASSIUM,K 3.6 mmol/L (3.5-5.1)
[2022-09-02] MEDS: Polyethylene Glycol 3350 Powder 17 GM Packet PO SCH (08:41)
[2022-09-02] MEDS: Docusate Sodium 100 MG Cap PO SCH ×2 (08:41→21:06)
[2022-09-02] MEDS: amLODIPine 5 MG Tab PO SCH (08:41)
[2022-09-02] MEDS: Enoxaparin 30 MG/0.3 ML Syringe SUBCUT SCH (11:15)
[2022-09-02] MEDS: Levofloxacin/Dextrose 5%-Water 750 MG in Premix Bag 1 BAG IV SCH (14:49)
[2022-09-02] MEDS: Pantoprazole 40 MG Tab.CR PO SCH (21:06)
[2022-09-03] MEDS: Acetaminophen 325 MG Tab PO SCH ×4 (03:30→20:49)
[2022-09-03] MEDS: Docusate Sodium 100 MG Cap PO SCH ×2 (08:52→20:49)
[2022-09-03] MEDS: Polyethylene Glycol 3350 Powder 17 GM Packet PO SCH (08:53)
[2022-09-03] MEDS: amLODIPine 5 MG Tab PO SCH (08:56)
[2022-09-03] MEDS: Enoxaparin 30 MG/0.3 ML Syringe SUBCUT SCH (12:49)
[2022-09-03] MEDS: Levofloxacin/Dextrose 5%-Water 750 MG in Premix Bag 1 BAG IV SCH (14:26)
[2022-09-03] MEDS: Bisacodyl 10 MG Supp RECTAL PRN (17:53)
[2022-09-03] MEDS: Pantoprazole 40 MG Tab.CR PO SCH (20:49)
[2022-09-04] MEDS: Acetaminophen 325 MG Tab PO SCH ×4 (03:03→20:45)
[2022-09-04] MEDS: Docusate Sodium 100 MG Cap PO SCH ×2 (08:49→20:45)
[2022-09-04] MEDS: Polyethylene Glycol 3350 Powder 17 GM Packet PO SCH (08:49)
[2022-09-04] MEDS: amLODIPine 5 MG Tab PO SCH (08:53)
[2022-09-04] MEDS: Enoxaparin 30 MG/0.3 ML Syringe SUBCUT SCH (13:01)
[2022-09-04] MEDS: Levofloxacin/Dextrose 5%-Water 750 MG in Premix Bag 1 BAG IV SCH (15:50)
[2022-09-04] MEDS ORDERED: Ketorolac 30 MG/ML SDV IVPUSH ONE (17:17)
[2022-09-04] MEDS: Pantoprazole 40 MG Tab.CR PO SCH (20:45)
[2022-09-05] MEDS: Acetaminophen 325 MG Tab PO SCH ×4 (03:09→20:54)
[2022-09-05] MEDS: amLODIPine 5 MG Tab PO SCH (08:42)
[2022-09-05] MEDS: Polyethylene Glycol 3350 Powder 17 GM Packet PO SCH (08:44)
[2022-09-05] MEDS: Docusate Sodium 100 MG Cap PO SCH ×2 (08:44→20:53)
[2022-09-05 09:40] LABS: CARBON DIOXIDE,CO2 21.8 mmol/L (21.0-32.0); POTASSIUM,K 3.8 mmol/L (3.5-5.1)
[2022-09-05] MEDS: Enoxaparin 30 MG/0.3 ML Syringe SUBCUT SCH (11:47)
[2022-09-05] MEDS: Levofloxacin/Dextrose 5%-Water 750 MG in Premix Bag 1 BAG IV SCH (16:34)
[2022-09-05] MEDS: Pantoprazole 40 MG Tab.CR PO SCH (20:53)
[2022-09-06] MEDS: Acetaminophen 325 MG Tab PO SCH ×2 (04:28→10:10)
[2022-09-06] MEDS: Docusate Sodium 100 MG Cap PO SCH (10:09)
[2022-09-06] MEDS: amLODIPine 5 MG Tab PO SCH (10:09)
[2022-09-06] MEDS: Polyethylene Glycol 3350 Powder 17 GM Packet PO SCH (10:10)
== END 2022-09-06 11:00 | DRG 481 ==
LOC: MW.ED 18:33 → MW.MS 21:28
PROVIDERS: ADMIT Student in an Organized Health Care Education/Training Program; ATTEND Student in an Organized Health Care Education/Training Program
PROC: 0QS734Z Reposition Left Upper Femur with Internal Fixation Device, Percutaneous Approach (ICD-10-PCS; principal; 2022-08-27)
DX: S72.142A Displaced intertrochanteric fracture of left femur, initial encounter for closed fracture (principal); N39.0 Urinary tract infection, site not specified; T83.511A Infection and inflammatory reaction due to indwelling urethral catheter, initial encounter; S62.615A Displaced fracture of proximal phalanx of left ring finger, initial encounter for closed fracture; E78.00 Pure hypercholesterolemia, unspecified; Z79.899 Other long term (current) drug therapy; I10 Essential (primary) hypertension; N40.0 Benign prostatic hyperplasia without lower urinary tract symptoms; Z20.822 Contact with and (suspected) exposure to COVID-19; E78.5 Hyperlipidemia, unspecified; B96.89 Other specified bacterial agents as the cause of diseases classified elsewhere; Z87.891 Personal history of nicotine dependence; Z90.79 Acquired absence of other genital organ(s); Y84.6 Urinary catheterization as the cause of abnormal reaction of the patient, or of later complication, without mention of misadventure at the time of the procedure; W10.9XXA Fall (on) (from) unspecified stairs and steps, initial encounter; Y92.89 Other specified places as the place of occurrence of the external cause
CPT/HCPCS: 36415; 51702; 71045; 73140; 73501; 80053; 85025; 96374; 99285; J2270; U0002; 01220; 76000; 76000-26; 80048; 81001; 83605; 83735; 87040; 87086; 87088; 87186; 96361; 97110-GP; 97163-GP; 97530-GP; 99100; A9270-GY; C1713; C1769; C9113; J0690; J0696; J1644; J1650; J1885; J1956; J2370; J2405; J2704; J3010; J3490; J7120